=== PATIENT | female | born 1980 | race Caucasian/White ===

== ENCOUNTER 2018-05-05 00:27 | Emergency (ER) | payer MEDICAID ==
[~2018-05-05] VITALS: Ht 149.9 cm; Wt 77.1 kg
[2018-05-05 00:44] VITALS: Ht 149.9 cm; Wt 77.1 kg
[2018-05-05] MEDS ORDERED: SEROQUEL100 MG PO (00:46)
[2018-05-05] MEDS ORDERED: PHENERGAN25 MG RC (00:46)
[2018-05-05] MEDS ORDERED: PREVALITE POWD231 GM PO (00:47)
[2018-05-05] MEDS ORDERED: AUGMENTIN1 TAB.SR . PO (01:03)
[2018-05-05 01:29] VITALS: BP 148/87
== END 2018-05-05 01:29 | disposition home or self-care (01) ==
LOC: D.ER 00:27
DX: S61.451A Open bite of right hand, initial encounter (principal); W54.0XXA Bitten by dog, initial encounter; Y93.89 Activity, other specified; Y92.89 Other specified places as the place of occurrence of the external cause

== ENCOUNTER 2018-07-01 21:19 | Emergency (ER) | payer MEDICAID ==
[~2018-07-01] VITALS: Ht 149.9 cm; Wt 81.8 kg
[~2018-07-01 21:19] MED LIST: AUGMENTIN1 TAB.SR . PO; PHENERGAN25 MG RC; PREVALITE POWD231 GM PO; SEROQUEL100 MG PO
[2018-07-01 21:39] VITALS: Ht 149.9 cm; Wt 81.8 kg
[2018-07-01 22:26] LABS: HCG URINE NEGATIVE (NEGATIVE)
[2018-07-02] MEDS ORDERED: TORADOL10 MG PO (00:07)
[2018-07-02 00:22] VITALS: BP 116/70
== END 2018-07-02 00:23 | disposition home or self-care (01) ==
LOC: D.ER 21:19
PROVIDERS: Family Medicine
DX: R07.81 Pleurodynia (principal)